=== PATIENT | female | born 1995 | race Caucasian/White ===

== ENCOUNTER 2021-07-10 17:12 | Emergency (ER) | payer OTHER ==
[~2021-07-10] VITALS: Ht 157.5 cm; Wt 59.0 kg
[2021-07-10] MEDS ORDERED: XELJANZ1 MG/1 ML (17:35)
[2021-07-10] MEDS ORDERED: KETO10TA2 PO (18:29)
== END 2021-07-10 19:21 | disposition home or self-care (01) ==
LOC: ER 17:12
DX: M79.631 Pain in right forearm (principal)